=== PATIENT | male | born 1950 | race Caucasian/White ===

== ENCOUNTER 2024-04-10 12:37 | Day surgery (SDC) | payer MEDICARE, OTHER ==
[2024-04-10] MEDS: Polymyxin B/Trimethoprim 10 ML Bottle EYELF SCH (13:31)
[2024-04-10] MEDS: Brimonidine 0.2% Ophth Soln 5 ML Bottle EYELF SCH (13:37)
[2024-04-10] MEDS: Phenylephrine 2.5% Ophth Soln 2 ML Bot EYELF SCH (13:42)
[2024-04-10] MEDS: Tropicamide 1% Ophth Soln 3 ML Bottle EYELF SCH (13:47)
[2024-04-10] MEDS: Tetracaine HCl/PF 0.5% 4 ML Bottle EYEBOTH SCH (14:26)
[2024-04-10] MEDS: Lidocaine 1% PF 2 ML SDV INJECT SCH (15:01)
[2024-04-10] MEDS: Cefuroxime 10 MG/ML SYRINGE EYELF SCH (15:17)
[2024-04-10] MEDS: Pilocarpine 4% Ophth Soln 15 ML Bot EYELF SCH (15:17)
== END 2024-04-10 15:24 | disposition home or self-care (01) ==
LOC: JD.SDS 12:37
PROVIDERS: ATTEND Ophthalmology
DX: H25.813 Combined forms of age-related cataract, bilateral (principal); H21.81 Floppy iris syndrome; H21.42 Pupillary membranes, left eye
CPT/HCPCS: 66982; A9270; J0697; J3490

== ENCOUNTER 2024-05-08 12:36 | Day surgery (SDC) | payer MEDICARE, OTHER ==
[2024-05-08] MEDS: Polymyxin B/Trimethoprim 10 ML Bottle EYERT SCH (12:57)
[2024-05-08] MEDS: Brimonidine 0.2% Ophth Soln 5 ML Bottle EYERT SCH (13:01)
[2024-05-08] MEDS: Phenylephrine 2.5% Ophth Soln 2 ML Bot EYERT SCH (13:05)
[2024-05-08] MEDS: Tropicamide 1% Ophth Soln 3 ML Bottle EYERT SCH (13:12)
[2024-05-08] MEDS: Pilocarpine 4% Ophth Soln 15 ML Bot EYERT SCH (14:08)
[2024-05-08] MEDS: Lidocaine 1% PF 2 ML SDV INJECT SCH (14:08)
[2024-05-08] MEDS: Tetracaine HCl/PF 0.5% 4 ML Bottle EYEBOTH SCH (14:08)
[2024-05-08] MEDS: Cefuroxime 10 MG/ML SYRINGE EYERT SCH (14:08)
== END 2024-05-08 14:59 | disposition home or self-care (01) ==
LOC: JD.SDS 12:36
PROVIDERS: ATTEND Ophthalmology
DX: H25.812 Combined forms of age-related cataract, left eye (principal); H21.81 Floppy iris syndrome; H21.41 Pupillary membranes, right eye; H18.413 Arcus senilis, bilateral; H16.103 Unspecified superficial keratitis, bilateral; H16.223 Keratoconjunctivitis sicca, not specified as Sjogren's, bilateral; H02.831 Dermatochalasis of right upper eyelid; H02.834 Dermatochalasis of left upper eyelid; H57.813 Brow ptosis, bilateral; Z96.1 Presence of intraocular lens; Z87.891 Personal history of nicotine dependence
CPT/HCPCS: 66982; A9270; J0697; J3490

== ENCOUNTER 2024-09-23 10:07 | Emergency (ER) | payer OTHER, MEDICARE ==
[2024-09-23] MEDS ORDERED: Naloxone 0.4 MG/ML SDV IVPUSH PRN ×3 (10:20→15:16)
[2024-09-23] MEDS: HYDROmorphone 0.5 MG/0.5 ML Syringe IVPUSH ONE ×2 (10:25→12:40)
[2024-09-23 10:35] LABS: BASOPHILS PERCENT AUTO 0.4 % (0.0-1.0); EOSINOPHILS ABSOLUTE AUTO 0.1 K/mm3 (0.0-0.4); EOSINOPHILS PERCENT AUTO 1.5 % (0.0-6.0); HEMATOCRIT 47.4 % (42.0-52.0); HEMOGLOBIN 16.4 gm/dl (14.0-18.0); IMMATURE GRAN ABSOLUTE AUTO 0.08 K/mm3 (0.00-0.05); IMMATURE GRAN PERCENT AUTO 1.5 % (0.0-0.4); LYMPHOCYTES ABSOLUTE AUTO 1.5 K/mm3 (1.0-4.8); MEAN CORPUSCULAR HEMOGLOBIN 29.7 pg (28.0-32.0); MEAN CORPUSCULAR HGB CONC 34.6 g/dl (32.0-36.0); MEAN CORPUSCULAR VOLUME 85.7 fl (83.0-99.0); MEAN PLATELET VOLUME 8.7 fl (9.4-12.4); MONOCYTES ABSOLUTE AUTO 0.5 K/mm3 (0.0-0.8); MONOCYTES PERCENT AUTO 8.9 % (0.0-8.0); NEUTROPHILS ABSOLUTE AUTO 3.3 K/mm3 (1.8-7.7); NEUTROPHILS PERCENT AUTO 60.7 % (41.0-71.0); PLATELET COUNT,PLT 239 K/mm3 (150-400); RED BLOOD CELL COUNT 5.53 M/mm3 (4.52-5.90)
[2024-09-23] MEDS: Ondansetron 4 MG/2 ML SDV IVPUSH ONE (10:49)
[2024-09-23] MEDS: Sodium Chloride 0.9% 10 ML Syringe FLUSH PRN ×2 (10:51→11:12)
[2024-09-23 11:05] LABS: A/G RATIO 1.1 (1-2); ALANINE AMINOTRANSFERASE,ALT 33 U/L (16-63); ALBUMIN 4.1 g/dl (3.4-5.0); ALKALINE PHOSPHATASE 67 U/L (46-116); ASPARTATE AMNIOTRANSFERASE,AST 36 U/L (15-37); BILIRUBIN TOTAL 0.9 mg/dL (0.2-1.0); BLOOD UREA NITROGEN,BUN 15 mg/dL (7-18); BUN/CREATININE RATIO 13.6 (14-18); CALCIUM 9.2 mg/dL (8.5-10.1); CARBON DIOXIDE,CO2 22 mEq/L (21-32); CHLORIDE,CL 99 mEq/L (98-107); CREATININE 1.1 mg/dL (0.7-1.3); EST CRCL DRUG DOSING (CG) 54.98 mL/min; ESTIMATED GFR 70 mL/min (>60); GLUCOSE RANDOM 128 mg/dL (70-99); PROTEIN TOTAL,TP 7.8 g/dl (6.4-8.2); SODIUM,NA 135 mEq/L (136-145)
[2024-09-23 11:06] LABS: INR 0.96; PROTHROMBIN TIME 10.2 SECONDS (9.7-12.0)
[2024-09-23 11:07] LABS: PTT,PARTIAL THROMBOPLSTIN TIME 25.2 SECONDS (21.7-31.4)
[2024-09-23] MEDS: Iopamidol 755 Mg/ML 100 ML Bottle IVPUSH ONE (11:12)
[2024-09-23 11:14] LABS: TROPONIN I HIGH SENSITIVITY < 4 pg/mL (<=76)
[2024-09-23] MEDS: Sodium Chloride 0.9% 1,000 ML IV ONE (12:45)
[2024-09-23] MEDS: Lidocaine 2% 11 ML Jelly Filled Syringe MUCMEM STA (15:38)
[2024-09-23] MEDS: HYDROmorphone 0.5 MG/0.5 ML Syringe IVPUSH PRN (16:16)
[2024-09-23] MEDS: D5 1/2 NS w/ 10 mEq/L KCl 1,000 ML IV SCH (16:33)
[2024-09-23 16:59] LABS: APPEARANCE,URINE CLEAR (Clear); BILIRUBIN,URINE NEGATIVE (Negative); COLOR,URINE YELLOW (Yellow); GLUCOSE,URINE NEGATIVE (Negative); KETONES,URINE NEGATIVE (Negative); LEUKOCYTE ESTERASE,URINE NEGATIVE (Negative); NITRITE,URINE NEGATIVE (Negative); OCCULT BLOOD,URINE NEGATIVE (Negative); PROTEIN,URINE NEGATIVE (Negative); UROBILINOGEN,URINE 0.2 (0.2-1.0)
== END 2024-09-23 17:20 ==
LOC: JD.ED 10:07
DX: S22.20XA Unspecified fracture of sternum, initial encounter for closed fracture (principal); S12.400A Unspecified displaced fracture of fifth cervical vertebra, initial encounter for closed fracture; S32.019A Unspecified fracture of first lumbar vertebra, initial encounter for closed fracture; Z91.030 Bee allergy status; Z79.899 Other long term (current) drug therapy; V49.40XA Driver injured in collision with unspecified motor vehicles in traffic accident, initial encounter; Y92.410 Unspecified street and highway as the place of occurrence of the external cause
CPT/HCPCS: 36415; 70450; 71045; 71260; 72125; 72128; 72131; 73070; 74177; 80053; 81003; 84484; 85025; 85610; 85730; 86850; 86900; 86901; 93005; 96361; 96365; 96375; 96376; 99285; A9270; J1171; J2405; J3480; J3490; J7030; Q9967; 93010